=== PATIENT | male | born 1975 | race Caucasian/White ===

== ENCOUNTER 2016-08-19 16:45 | Emergency (ER) | payer SELFPAY ==
[~2016-08-19] VITALS: Ht 185.4 cm; Wt 102.2 kg
[2016-08-19 17:11] VITALS: Ht 185.4 cm; Wt 102.2 kg
--- NOTE | 2016-08-19 18:44 | DIAGNOSTIC IMAGING REPORT ---
LUMBAR SPINE 5 VIEWS HISTORY: Pain lumbar back after splitting wood COMPARISON: None. FINDINGS: There is no fracture. No subluxation. Disc spaces are preserved. IMPRESSION: No fracture or subluxation within the lumbar spine. Electronically signed by: Alexandre Tang M.D. 08/19/2016 6:43 PM Dictated Date/Time: 08/19/2016 6:43 PM
[2016-08-19] MEDS ORDERED: HYDR-5688 PO (19:00)
[2016-08-19] MEDS ORDERED: CYCL10TA6 PO (19:00)
[2016-08-19 19:10] VITALS: BP 141/107; PULSE 70; TEMP 36.5; O2SAT 98
--- NOTE | 2016-08-22 11:37 | EMERGENCY ROOM VISIT NOTE ---
ED Visit Note First contact with patient: 17:41 Chief Complaint: Lower back pain. History of Present Illness: Mr. White is a 40-year-old white male who ambulates into the ED complaining of lumbar back pain. Patient denies any significant previous back diseases or surgeries. Patient reports 3 days ago he was splitting a cord of lumbar. He reports immediately after finished splitting the lumbar he started experiencing some mild back discomfort. Since that time his pain has gradually increased since intensity in intensity and has become severe. Currently he places his discomfort throughout the lower back from the L3-S1 area bilaterally into the paraspinous muscles. He describes his pain as a sharp and cramping sensation. He rates his discomfort 10/10. He denies radiation of the pain. All movements of the lower back increases his discomfort as well as palpation throughout the bony processes and muscles. He has been using [id number] medications without relief of his discomfort. He denies any associated symptoms including fevers, chills, sweats, skin eruptions, skin color changes, abdominal pain, nausea, vomiting, diarrhea, constipation, rectal bleeding, black/tarry stools, flank pain, genital/rectal paresthesias, bowel and bladder dysfunction, lower extremity weakness/numbness/ tingling. Review of Systems: As noted above in history of present illness. 8 body systems were reviewed and found to be negative as noted above. Past Medical History: Patient denies. Current Medications: Patient denies. Allergies to Medications: Patient denies. Social History: Patient is currently employed; he feels safe in his home environment; he denies tobacco use. Physical Examination: Vital Signs: Date Time Temp Pulse Resp B/P Pulse Ox O2 Delivery O2 Flow Rate FiO2 08/19/16 19:10 36.5 70 18 141/107 98 08/19/16 17:11 36.5 89 18 159/112 98 Room Air GENERAL: 40-year-old male in moderate distress due to pain, nontoxic-appearing, afebrile and hemodynamically stable. NEUROLOGICAL: Awake, alert and oriented to person, place and time. Answering questions appropriately and following commands. Normal gait. Good hand eye coordination. No focal motor sensory deficits. SKIN: Warm, dry and pink. No soft tissue eruptions or trauma noted. HEENT: Atraumatic and normocephalic. PERRLA. Sclera white and conjunctiva pink. No drainage from naris. Oral cavity moist and pink. Pharynx is nonerythematous or edematous. Speech normal. No lymphadenopathy. Trachea midline. No jugular venous distention. BACK: No tenderness over the bony cervical and thoracic spine. No CVA tenderness. Moderate tenderness diffusely throughout the lumbar spine starting at the L5 to the S1 area. Do not appreciate any bony deformities, bony crepitus or swelling. There is also moderate to severe tenderness throughout the paraspinous muscles with spasm. Decreased range of motion in all being instigating pain. Negative straight leg raise test. THORAX: Lungs sounds are clear to auscultation and equal bilaterally with symmetrical chest wall. No wheezing, rales or rhonchi. No crepitus, tenderness , subcutaneous air or deformities noted. HEART: Regular rate and rhythm. No gallops, rubs or murmurs are appreciated. ABDOMEN: Flat, soft and nontender. Positive bowel sounds in all quadrants. No guarding, rigidity or organomegaly. EXTREMITIES: Moves all extremities well on command and with purpose. All distal neurovascular statuses are intact and equal bilaterally. Lower Extremities: 4/5 muscle strength in flexion, extension, abduction and abduction of the hips, flexion and extension of knees and plantar flexion and dorsiflexion of the ankles. 2+ patellar and Achilles deep tendon reflexes intact and equal bilaterally. He was able to distinguish light sensations through all dermatomes of the lower legs and feet. ED Course: Patient is assessed as noted above. Patient was offered pain medications but drove himself to the hospital. Patient was educated about tonight's findings and instructed on his treatment plan; he verbalizes understanding and agreement with this plan. Clinical Impression: Acute lumbar back pain. Muscle spasm. Decision-Making: Initially my differential diagnosis I considered disc herniation, muscle spasm, pyelonephritis, pancreatitis, sciatica, cauda equina syndrome and other causes. Disposition: Patient discharged home in stable condition; prior to departure he was reassessed and subjectively reported he was feeling better and rated his discomfort 2/10. Plan: Comfort measures were discussed with the patient including rest, ice, proper lifting moving techniques, sliding pain scale of ibuprofen, acetaminophen and [place]; he was instructed on narcotic precautions and a prescription for Flexeril. Patient was encouraged to follow-up with his PCP for recheck in 3-5 days. Patient was encouraged return the ED for uncontrolled pain, rectal/genital paresthesias, bowel and bladder dysfunction, lower extremity weakness/numbness/ tingling, fevers or any new/concerning symptoms.
== END 2016-08-19 19:11 | disposition home or self-care (01) ==
LOC: C.EDB 16:46 → C.EDD 19:11
DX: M54.5 Low back pain (principal); M62.830 Muscle spasm of back

== ENCOUNTER 2016-09-29 10:35 | Emergency (ER) | payer OTHER ==
[~2016-09-29] VITALS: Ht 185.4 cm; Wt 101.7 kg
[~2016-09-29 10:35] MED LIST: HYDR-5688 PO
[2016-09-29 10:49] VITALS: Ht 185.4 cm; Wt 101.7 kg
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
[2016-09-29] MEDS ORDERED: ONDA4TAB46 PO (12:31)
[2016-09-29 12:37] VITALS: BP 122/74; PULSE 69; TEMP 37; O2SAT 98
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
== END 2016-09-29 12:38 | disposition home or self-care (01) ==
LOC: C.EDB 10:37 → C.EDD 12:38
DX: M54.2 Cervicalgia (principal); V43.52XA Car driver injured in collision with other type car in traffic accident, initial encounter

== ENCOUNTER 2023-07-23 12:38 | Inpatient (IN) ==
--- NOTE | 2023-07-23 13:22 | XRay Report ---
XR chest 1V not portable CLINICAL HISTORY: Chest pain, nonspecific COMPARISON STUDY: No previous studies for comparison. FINDINGS: Lung volumes are normal. Lungs are clear. There is no pneumothorax or pleural effusion. Car diac size is normal. Mediastinal contours are normal. There is no evidence for pulmonary edema. IMPRESSION: No acute cardiopulmonary findings. ACT 112: Negative or not required by law. Electronically signed by: Rush Trotter M.D. 07/23/2023 1:20 PM
[2023-07-23 13:24] LABS: Basophils # (auto) 0.04 K/uL (0.00-0.20); Basophils % (auto) 0.5 %; Eosinophils # (auto) 0.05 K/uL (0.00-0.50); Eosinophils % (auto) 0.6 %; Hematocrit (blood only) 47.4 % (42.0-52.0); Hemoglobin 16.1 g/dl (14.0-18.0); Immature Granulocytes # (auto) 0.11 K/uL (0.01-0.20); Immature Granulocytes % (auto) 1.3 %; Lymphocytes # (auto) 2.46 K/uL (1.20-3.40); Lymphocytes % (auto) 30.2 %; Mean Corpuscular Hemoglobin 30.4 pg (25.0-34.0); Mean Corpuscular Volume 89.4 fL (80.0-100.0); Mean Platelet Volume 9.3 fL (9.4-12.4); Monocytes # (auto) 0.67 K/uL (0.11-0.59); Monocytes % (auto) 8.2 %; Neutrophils # (auto) 4.82 K/uL (1.40-6.50); Neutrophils % (auto) 59.2 %; Platelet Count 247 K/uL (130-400); RDW Coefficient of Variation 12.2 % (11.5-14.5); RDW Standard Deviation 39.9 fL (36.4-46.3); White Blood Count 8.15 K/ul (4.8-10.8)
[2023-07-23 13:36] LABS: Albumin Globulin Ratio 1.4 (0.9-2); Albumin Level 4.5 gm/dl (3.4-5.0); BUN Creatinine Ratio 18.8 (10-20); Bilirubin,Total 0.4 mg/dl (0.2-1.0); Calcium 9.4 mg/dl (8.6-10.3); Creatinine Clr Calc Pharmacy 118.4 ml/min; Est GFR (African American) 107.1 ml/min; Est GFR (Non-African American) 92.4 ml/min; Globulin 3.2 gm/dl (2.5-4.0); Potassium 3.7 mmol/L (3.5-5.1); Total Protein 7.7 gm/dl (6.0-8.3)
[2023-07-23 13:40] LABS: Troponin I High Sensitivity 39.9 pg/ml (0-20)
[2023-07-23 13:47] LABS: Partial Thromboplastin Time 28 Seconds (21-31); Prothrombin Time 10.5 Seconds (9.0-12.0)
--- NOTE | 2023-07-23 15:59 | Emergency Department Note ---
Impression & Plan Dyspnea on exertion, Chest pain, Marijuana use ED Provider Note CHIEF COMPLAINT: Palpitations, chest pain, dyspnea on exertion x 2 years HISTORY OF PRESENT ILLNESS: This 47-year-old male patient presents to the emergency department via private vehicle for evaluation of palpitations, chest pain, dyspnea on exertion which has been ongoing for about 2 years. The patient states that symptoms have been progressively worsening over the past 2 years, but have seemed to be "really bad" for about 2 to 3 months. The patient states last week, he was having difficulty even pushing a snowblower due to to experiencing significant shortness of breath and chest pain while doing this and had to stop to rest several times. He states yesterday, he almost passed out after walking up a flight of stairs due to the pain. The patient states that when he does any sort of physical exertion, he develops significant shortness of breath and feels that his heart is beating out of his chest. He states he then develops generalized chest pain. The patient notes that he has not taken any medications for the symptoms. He states that he does not currently smoke, but occasionally smokes marijuana. He reports family history of an [place] in his grandfather in his 60s and notes that his grandfather at the time of his heart attack. He denies any family history of heart disease in his mother and states he does not know his father and has no way of obtaining family history from him. The patient states he generally was a pretty active person until the dyspnea on exertion seems to be worsening. He notes that he does have a remote history of pleurisy and states that he frequently gets bronchitis. He does not regularly go to the doctor and has no idea of his cholesterol or most recent labs. He states he does not normally check his blood pressure. At the present time, the patient states he does not have any pain or shortness of breath. REVIEW OF SYSTEMS: A 10 system review of systems was performed with positives and pertinent negatives listed in the history of present illness. All other systems were reviewed and are negative. ALLERGIES: Nickel, NKDA PHYSICAL EXAM: VITALS: Vitals are noted on the nurse's note and reviewed by myself. Patient is hypertensive. GENERAL: This is a 47-year-old male, in no acute distress, nondiaphoretic, well- developed well-nourished. SKIN: The skin was without rashes, erythema, edema, or bruising. There is no tenting of the skin. Capillary refill less than 2 seconds. HEAD: Normocephalic atraumatic. EYES: Conjunctivae without injection, sclerae without icterus. NOSE: Patent, turbinates without inflammation or discharge. No sinus tenderness. MOUTH: Mucous membranes moist. Tonsils are not enlarged. Pharynx without erythema or exudate. Uvula midline. Airway patent. Tongue does not deviate. NECK: Supple without nuchal rigidity. No lymphadenopathy. No JVD. HEART: Regular rate and rhythm without murmurs gallops or rubs. LUNGS: Clear to auscultation bilaterally without wheezes, rales or rhonchi. No retractions or accessory muscle use. ABDOMEN: Positive bowel sounds x 4. Soft, nontender, without masses or organomegaly. No guarding or rebound tenderness. MUSCULOSKELETAL: No muscle atrophy, erythema, or edema noted. Full range of motion without joint tenderness in all extremities. No tenderness to palpation. Normal gait. Strength 5/5 throughout. NEURO: Patient was alert and oriented to person place and time. No focal neurological deficits. An order was placed for continuous cardiac cath technician. The monitor showed a normal sinus rhythm at a ventricular rate of 66 bpm, per my interpretation. EKG, per my interpretation: Normal sinus rhythm with sinus arrhythmia. Ventricular rate of [address] elevation or depression. No T wave inversion. No prior EKG available for comparison EKG completed approximately 2 hours later, per my interpretation: Normal sinus rhythm with ventricular rate of [address] elevation or depression. No T wave inversion. No significant change when compared to EKG completed earlier in the day. EMERGENCY DEPARTMENT COURSE: The patient was seen and evaluated as above. History is extremely concerning for dyspnea on exertion, even with minimal exertion. The patient denies any trauma or injury. He is asymptomatic at this time, but notes with any physical activity, he gets severe chest discomfort, shortness of breath, and has to stop to rest. Workup completed here in the emergency department is noted. The workup was started in triage due to high-volume, high acuity in the emergency department. IV access was obtained, labs were drawn. Per my interpretation, no leukocytosis, anemia, thrombocytopenia. Renal, hepatic function, and electrolytes without significant abnormality. Initial high-sensitivity troponin mildly elevated at 39.9. Repeat high-sensitivity troponin completed approximately 2 hours later 40. Given patient's history as well as mildly elevated troponin, I do recommend admission for further evaluation. I am concerned for the significant exertional symptoms. I do feel that the patient would benefit from a cardiology consultation. I consulted with the [facility] hospitalist physician. I spoke with Dr. Mata who did agree to see and evaluate the patient. Please see hospitalist dictation regarding ongoing management and care of this patient. Differential diagnosis includes Cardiac ischemia, aortic dissection, pulmonary embolism, pneumothorax, pneumonia, pericarditis, myocarditis, esophageal rupture, PE, GERD, cholecystitis, pancreatitis, musculoskeletal, as well as other pathologies. I attest that I have personally reviewed the patient's current medication list. Patient was found to have an elevated blood pressure and was referred to their primary doctor for recheck and further treatment. The chart was completed utilizing [employer] technology Speech voice recognition software. Grammatical errors, random word insertions, pronoun errors, and incomplete sentences are an occasional consequence of this system due to software limitations, ambient noise, and hardware issues. Any formal questions or concerns about the content, text, or information contained within the body of this dictation should be directly addressed to the provider for clarification. Past Med/Surg History Medical History Dyspnea on exertion History of back problems no medical follow up Bronchitis ~1 year (gets annually) Surgical History (Updated 05/23/20 @ 14:22 by Harish Mckeon DO) H/O umbilical hernia repair (05/08/20) Open Primary Umbilical Hernia Repair Dr. Mckeon 05/08/2020 H/O wisdom tooth extraction Family History Grandmother Breast cancer Grandfather Diabetes Heart disease Hypertension Other No family history of adverse response to anesthesia Social History Smoking Status: Current some day smoker Tobacco Type: Cigarettes Second Hand Exposure: No; Do You Dip or Chew Tobacco: No; Hx Alcohol Use: Yes Alcohol Intake Frequency: Monthly or Less Hx Substance Use: Yes (recreational marijuanna (weekly)) Non-Prescribed Medications: Marijuana Last Used Substance: Days (ago) Last Used Substance Other:: ~10/17/20 Preferred Language: Japanese Communication Ability: Effective Authorization Nurse Required: No Beliefs That Will Affect Care: None Current Living Situation: Alone Feels Safe at Home: Yes Allergies Allergies Allergy/AdvReac Type Severity Reaction Status Date / Time nickel Allergy "cheap Verified 05/23/20 13:58 jewelry" skin irritation No Known Drug Allergies Allergy Unknown Verified 07/23/23 15:41 Home Meds Home Medications Medication Instructions Recorded Confirmed Black Seed Oil 1,000 mg PO DAILY 07/23/23 07/23/23 Results & Data (ED) Vital Signs Vital Signs - 24 hr 07/23/23 12:42 07/23/23 15:14 07/23/23 16:14 Temperature 36.5 C Temperature Source Temporal Artery Scan Pulse Rate 84 Pulse Rate [Apical] 66 70 Respiratory Rate 20 15 18 Blood Pressure 175/104 H Blood Pressure [Right Arm] 148/104 H 135/93 Blood Pressure Mean 127 Blood Pressure Mean [Right Arm] 118 107 Pulse Oximetry 99 99 98 Oxygen Delivery Method Room Air Room Air Room Air Sepsis Recent Fever Within 48 Hours No Sepsis New/Unexplained Change in Mental Status N/A Sepsis Action Taken by Nursing No Action Required 07/23/23 16:31 Temperature Temperature Source Pulse Rate 72 Pulse Rate [Apical] Respiratory Rate Blood Pressure Blood Pressure [Right Arm] Blood Pressure Mean Blood Pressure Mean [Right Arm] Pulse Oximetry Oxygen Delivery Method Sepsis Recent Fever Within 48 Hours Sepsis New/Unexplained Change in Mental Status Sepsis Action Taken by Nursing Laboratory Data 07/23/23 12:55 07/23/23 12:55 Lab Results 07/23/23 07/23/23 Range/Units 12:55 15:23 WBC 8.15 (4.8-10.8) K/ul RBC 5.30 (4.70-6.10) M/uL Hgb 16.1 (14.0-18.0) g/dl Hct 47.4 (42.0-52.0) % MCV 89.4 (80.0-100.0) fL MCH 30.4 (25.0-34.0) pg MCHC 34.0 (32.0-36.0) g/dL RDW Std Deviation 39.9 (36.4-46.3) fL RDW Coeff of Gurjit 12.2 (11.5-14.5) % Plt Count 247 (130-400) K/uL MPV 9.3 L (9.4-12.4) fL Immature Gran % (Auto) 1.3 % Neut % (Auto) 59.2 % Lymph % (Auto) 30.2 % Murray % (Auto) 8.2 % Eos % (Auto) 0.6 % Baso % (Auto) 0.5 % Neut # (Auto) 4.82 (1.40-6.50) K/uL Lymph # (Auto) 2.46 (1.20-3.40) K/uL Murray # (Auto) 0.67 H (0.11-0.59) K/uL Eos # (Auto) 0.05 (0.00-0.50) K/uL Baso # (Auto) 0.04 (0.00-0.20) K/uL Immature Gran # (Auto) 0.11 (0.01-0.20) K/uL PT 10.5 (9.0-12.0) Seconds INR 1.0 (0.9-1.1) APTT 28 (21-31) Seconds PTT Ratio 1.0 Sodium 137 (136-145) mmol/L Potassium 3.7 (3.5-5.1) mmol/L Chloride 106 (98-107) mmol/L Carbon Dioxide 26 (21-32) mmol/L Anion Gap 5 (3-11) BUN 18 (6-23) mg/dl Creatinine 0.96 (0.6-1.4) mg/dl Est Cr Clr Drug Dosing 118.4 ml/min Est GFR ( Amer) 107.1 ml/min Est GFR (Non-Af Amer) 92.4 ml/min BUN/Creatinine Ratio 18.8 (10-20) Glucose 78 (70-99(Fasting)) mg/dl Calcium 9.4 (8.6-10.3) mg/dl Magnesium 2.0 (1.7-2.4) mg/dl Total Bilirubin 0.4 (0.2-1.0) mg/dl AST 20 (13-39) U/L ALT 28 (7-52) U/L Alkaline Phosphatase 78 (34-104) U/L Troponin I High Sens 39.9 H 40.0 H (0-20) pg/ml Total Protein 7.7 (6.0-8.3) gm/dl Albumin 4.5 (3.4-5.0) gm/dl Globulin 3.2 (2.5-4.0) gm/dl Albumin/Globulin Ratio 1.4 (0.9-2) Administered Medications Enoxaparin Sodium (Enoxaparin Inj 40 Mg/0.4 Ml Syr) 40 mg SQ Q24H JUAN ALBERTO Stop: 08/22/23 17:59 Last Admin: 07/23/23 18:01 Dose: 40 mg Documented By: DS Discontinued Medications Aspirin (Aspirin Chew 324 Mg) 324 mg PO NOW STA Stop: 07/23/23 17:33 Last Admin: 07/23/23 18:01 Dose: 324 mg Documented By: DS Imaging Data Radiologist's Impression: Chest X-Ray 07/23/23 12:48 XR chest 1V not portable CLINICAL HISTORY: Chest pain, nonspecific COMPARISON STUDY: No previous studies for comparison. FINDINGS: Lung volumes are normal. Lungs are clear. There is no pneumothorax or pleural effusion. Cardiac size is normal. Mediastinal contours are normal. There is no evidence for pulmonary edema. IMPRESSION: No acute cardiopulmonary findings. ACT 112: Negative or not required by law. Electronically signed by: Rush Trotter M.D. 07/23/2023 1:20 PM Discharge Plan Visit Data Chief Complaint: Arrhythmia/Palpitations Stated Complaint: SOB, HEART PALPS ED Provider: Mark Anthony Sanderson ED Midlevel Provider: Evelia Berg Discharge Problem: Dyspnea on exertion, Chest pain, Marijuana use Patient Disposition: Admitted As Inpatient Discharge Instructions Interventions: ED Discharge Assessment Last Done: 07/23/23 17:26
--- NOTE | 2023-07-23 16:25 | Electrocardiogram Report ---
Test Reason : Blood Pressure : / mmHG Vent. Rate : 074 BPM Atrial Rate : 074 BPM P-R Int : 136 ms QRS Dur : 078 ms QT Int : 366 ms P-R-T Axes : 067 050 048 degrees QTc Int : 406 ms Normal sinus rhythm with sinus arrhythmia Nonspecific T wave abnormality Anterolateral leads Abnormal ECG When compared with ECG of 15-JUL-2011 15:56, Nonspecific T wave abnormality now present Anterolateral leads Confirmed by Guanako Francis ([id number]) on 07/23/2023 4:25:25 PM Referred By: Confirmed By:Guanako Francis
--- NOTE | 2023-07-23 16:26 | Electrocardiogram Report ---
Test Reason : Blood Pressure : / mmHG Vent. Rate : 070 BPM Atrial Rate : 070 BPM P-R Int : 146 ms QRS Dur : 074 ms QT Int : 386 ms P-R-T Axes : 051 021 022 degrees QTc Int : 416 ms Normal sinus rhythm Normal ECG When compared with ECG of 23-JUL-2023 12:50, Nonspecific T wave abnormality no longer present Anterolateral leads Confirmed by Guanako Francis ([id number]) on 07/23/2023 4:25:43 PM Referred By: Confirmed By:Guanako Francis
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
[2023-07-23] MEDS ORDERED: ASPIRIN CHEW 324 MG PO STA (17:32)
[2023-07-23] MEDS ORDERED: ENOXAPARIN INJ 40 MG/0.4 ML SYR SQ SCH (18:00)
[2023-07-23 18:18] LABS: D Dimer 440 ug/L FEU (0-500)
[2023-07-24 05:19] LABS: Hematocrit (blood only) 45.8 % (42.0-52.0); Hemoglobin 15.7 g/dl (14.0-18.0); Mean Corpuscular Hgb Conc 34.3 g/dL (32.0-36.0); Mean Corpuscular Volume 87.6 fL (80.0-100.0); Mean Platelet Volume 9.1 fL (9.4-12.4); Platelet Count 217 K/uL (130-400); RDW Coefficient of Variation 12.4 % (11.5-14.5); Red Blood Count 5.23 M/uL (4.70-6.10)
[2023-07-24 05:46] LABS: Calcium 9.4 mg/dl (8.6-10.3); Potassium 4.7 mmol/L (3.5-5.1); Troponin I High Sensitivity 43.5 pg/ml (0-20)
[2023-07-24 05:57] LABS: BUN Creatinine Ratio 15.4 (10-20); Chol HDL Ratio 7.2 (0-5); Creatinine Clr Calc Pharmacy 109.3 ml/min; Est GFR (African American) 97.3 ml/min; Est GFR (Non-African American) 83.9 ml/min
[2023-07-24 06:59] LABS: Estimated Average Glucose 126 mg/dl
--- NOTE | 2023-07-24 10:25 | XCELERA ---
[id number] \\[id number]\[id number]
--- NOTE | 2023-07-24 15:07 | Cardiology Consultation ---
Date of Consultation July 24, 2023 Assessment & Plan (1) Dyspnea on exertion: (2) Palpitations: (3) Elevated troponin: Plan 47-year-old man with no major vascular risk factors notes poor exercise tolerance with tachypalpitations, not describing typical anginal symptoms. We discussed options including stress testing versus cardiac catheterization, after reviewing risks/benefits of procedure with a stress echocardiogram. As noted, patient had tachypalpitations which reflected mild accelerated heart rate response to activity without evidence of dysrhythmia. No ECG or echocardiographic evidence of myocardial ischemia on stress echocardiogram at 100% maximum predicted heart rate. Minor/flat troponin curve of uncertain significance, potentially very mild myocarditis but no symptoms suggestive of this. May be baseline value given his moderate LVH. Etiology of his suboptimal exercise tolerance is uncertain, no anemia, evidence of bronchospasm, or other obvious metabolic abnormality. In the absence of evidence for underlying medical illness, hemodynamic response to exercise suggest some degree of deconditioning. Given unremarkable stress echocardiogram, he could proceed with incremental aerobic exercise. No specific cardiology follow-up needed presently, but did recommend that he establish with a primary care provider. History of Present Illness Reason for Consultation: chest pain, MARSHALL, palpitations, elevated trop Requesting Physician: Adelso Naranjo DO Attending Physician: Adelso Naranjo DO History of Present Illness 47-year-old generally healthy man with no major vascular risk factors presents to ER with exertional tachypalpitations and dyspnea which are fairly longstanding but have been increasing in frequency over the past few months. 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 He denies any chest pressure or anginal type chest discomfort. No lightheadedness, presyncope, or syncope. No tachypalpitations at rest. Review of vascular risk factors: Smokes marijuana but not tobacco Unknown lipid profile No history of diabetes No history of hypertension As noted, physically active Mildly increased BMI No heart disease in first-degree relatives He had no somatic complaints at the time of my evaluation. Allergies Allergy/AdvReac Type Severity Reaction Status Date / Time nickel Allergy "cheap Verified 05/23/20 13:58 jewelry" skin irritation No Known Drug Allergies Allergy Unknown Verified 07/23/23 15:41 Home Medications Medication Instructions Recorded Confirmed Type Black Seed Oil 1,000 mg PO DAILY 07/23/23 07/23/23 History Patient History Medical History Dyspnea on exertion History of back problems no medical follow up Bronchitis ~1 year (gets annually) Surgical History H/O umbilical hernia repair (05/08/20) Open Primary Umbilical Hernia Repair Dr. Mckeon 05/08/2020 H/O wisdom tooth extraction Family History Grandmother Breast cancer Grandfather Diabetes Heart disease Hypertension Other No family history of adverse response to anesthesia Social History Smoking Status: Never smoker Tobacco Type: Cigarettes Second Hand Exposure: No; Do You Dip or Chew Tobacco: No; Hx Alcohol Use: Yes Alcohol Intake Frequency: Monthly or Less Hx Substance Use: Yes Non-Prescribed Medications: Marijuana Last Used Substance: Unknown Last Used Substance Other:: ~04/28/20 Preferred Language: Lao Communication Ability: Effective Tree Scout Required: No Beliefs That Will Affect Care: None Current Living Situation: Alone Feels Safe at Home: Yes Safety Concerns: Feels Safe At This Time Assistive Devices: None Physical Exam Physical Exam: Adult white male in no distress. Afebrile. BP normotensive. Pulse 95 bpm and regular. Respirations 18 and unlabored. Skin: no ecchymoses or generalized lesions. HEENT: unremarkable. Neck: JVP at the clavicle at 90 degrees, no carotid bruits. Lungs: clear. Cardiac: regular rhythm, normal S1-2, no murmur. Abdomen: benign. Extremities: no edema, pulses intact. Neurologic: normal affect and conversation, nonfocal. Results & Data Laboratory Results Troponin values 39, 40, 39, 43. Normal electrolytes, BUN 16, creatinine 1.04. D-dimer was normal. Diagnostic Findings ECG on admission showed sinus rhythm with sinus arrhythmia at 74 bpm, nonspecific T wave flattening anterolateral leads. Compared with 07/15/2011 ECG, nonspecific T wave flattening was noted. Second ECG showed sinus rhythm at 70 bpm, unremarkable T waves, nonspecific anterior T wave flattening had disappeared. Chest x-ray unremarkable. Echocardiogram showed normal LV systolic function (EF 65 to 70%), moderate LVH, grade 1 diastolic dysfunction, no significant valvular disease, no wall motion abnormalities. Patient underwent stress echocardiogram walked for 6 minutes on a Mauri protocol achieving 100% max predicted heart rate, he noted subjective tachypalpitations but no chest discomfort. No ECG changes, ectopy, or dysrhythmias. Normal postexercise echocardiographic response to exercise. Normal blood pressure response to exercise. PG Care Time/CCT Total # of Minutes Spent Total Time Spent with Patient: Total time spent is greater than 50% in coordination of care (as documented) at patient's floor/unit and/or counseling patient: Coding Level of Care Code 47172 OFFICE CONSULT LVL 4/40M Diagnoses Dyspnea on exertion R06.00 Palpitations R00.2 Elevated troponin R79.89
--- NOTE | 2023-07-24 15:31 | XCELERA ---
[id number] \\[id number]\[email or web address]_[id number]
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
== END 2023-07-24 16:49 | disposition home or self-care (01) | DRG 313 ==
LOC: ED 12:38 → SUATTDRO 16:52 → EDINP 16:52